=== PATIENT | female | born 1960 | race Caucasian/White ===

== ENCOUNTER → 2024-08-28 | Outpatient (CLI) | payer BC ==
--- NOTE | 2024-08-28 09:27 | BD ---
EXAMINATION TYPE: Axial Bone Density DATE OF EXAM: 08/28/2024 CLINICAL HISTORY: 64 years old Female. ICD-10 CODE: Z78.0 POSTMENOPAUSAL , Additional History: Height: 64.5 Weight: 166.3 FRAX RISK QUESTIONS: Alcohol (3 or more units per day): no Family History (Parent hip fracture): yes Glucocorticoids (More than 3mos): no (Ex: prednisone, prednisolone, methylprednisolone, dexamethasone, and hydrocortisone). History of Fracture in Adulthood: no Secondary Osteoporosis: 1. Type 1 Diabetes: no 2. Hyperthyroidism: no 3. Menopause before 45: yes 4. Malnutrition: no 5. Chronic liver disease: no Rheumatoid Arthritis: no Current Tobacco Use: yes RISK FACTORS HISTORY OF: Surgery to Spine/Hip(right/left)/Wrist (right/left): no When: MEDICATIONS: Thyroid Medications: synthroid How Long: since age 14 EXAM MEASUREMENTS: Bone mineral densitometry was performed using the SCYFIX System. Bone mineral density as measured about the Lumbar spine is: ----- L1-L4(G/cm2): 0.992 T Score Values are as follows: ----- L1: -2.1 ----- L2: -2.4 ----- L3: -1.5 ----- L4: -0.8 ----- L1-L4: -1.6 Z Score Values are as follows: ----- L1: -1.0 ----- L2: -1.3 ----- L3: -0.4 ----- L4: 0.3 ----- L1-L4: -0.5 Bone mineral density : baseline Bone mineral density about the R hip (g/cm2): 0.853 Bone mineral density about the L hip (g/cm2): 0.810 T Score values are as follows: -----R Neck: -2.0 -----L Neck: -1.8 -----R Total: -1.2 -----L Total: -1.6 Z Score values are as follows: -----R Neck: -0.9 -----L Neck: -0.7 -----R Total: -0.4 -----L Total: -0.7 Bone mineral density : baseline FRAX%s: The graph provided illustrates a 19.6% chance for a major osteoporotic fx and a 2.7% chance f or the hips probability for fx in 10 years time. IMPRESSION: Osteopenia (T Score between -2.5 and -1). There is slightly increased risk of fracture and the patient may be considered for treatment. Re-Screen 2-5 years. NOTE: T-SCORE=SD OF THE YOUNG ADULT MEAN. [facility], , 08/28/2024 9:24 AM
--- NOTE | 2024-08-28 12:08 | MM ---
Reason for Exam: Screening (asymptomatic). Last mammogram was performed 16 year(s) and 2 month(s) ago. Patient History: Menarche at age 14. First Full-Term at age 24. Risk Values: Makenna 5 year model risk: 1.4%. NCI Lifetime model risk: 6.0%. Prior Study Comparison: 01/07/2004 Screening Mammogram, [facility]. 05/10/2007 Bilateral Screening Mammogram, [facility]. 07/01/2008 Bilateral Screening Mammogram, [facility]. Tissue Density: The breasts are extremely dense, which lowers the sensitivity of mammography. Findings: There is no suspicious group of microcalcifications or new suspicious mass in either breast. Overall Assessment: Benign, BI-RAD 2 Management: Screening Mammogram of both breasts in 1 year. . Patient should continue monthly self-breast exams. A clinical breast exam by your physician is recommended on an annual basis. This exam should not preclude additional follow-up of suspicious palpable abnormalities. Note on Makenna scores and lifetime risk: 1. A Makenna score greater than 3% is considered moderate risk. If this is the case, consider specialist referral to assess eligibility for a risk reducing agent. 2. If overall lifetime risk for the development of breast cancer is 20% or higher, the patient may qualify for future screening with alternating mammogram and breast MRI. [facility], , 08/28/2024 12:05 PM. Electronically signed and approved by: Abhijit Randhawa M.D. Radiologis
== END | disposition home or self-care (01) ==
LOC: RADBDWWP 08:13
PROVIDERS: ATTEND Family Medicine
DX: Z12.31 Encounter for screening mammogram for malignant neoplasm of breast (principal); R92.343 Mammographic extreme density, bilateral breasts; M85.89 Other specified disorders of bone density and structure, multiple sites; Z78.0 Asymptomatic menopausal state
CPT/HCPCS: 77063; 77067; 77080

== ENCOUNTER 2024-09-30 07:12 | Day surgery (SDC) | payer BC ==
[2024-09-30] MEDS: IV FLUID CONTINUATION 1,000 ML IV ONE ×2 (08:04→09:12)
[2024-09-30] MEDS: LACTATED RINGERS 1,000 ML IV SCH (08:04)
[2024-09-30 08:05] LABS: Glucose,Whole Blood 137 mg/dL (70-110)
[2024-09-30 08:09] VITALS: TEMP 97
[2024-09-30] MEDS ORDERED: PROPOFOL 10 MG/ML 20 ML VIAL IV ONE (09:20)
--- NOTE | 2024-09-30 09:38 | P.PCN ---
Date of Procedure: 09/30/24 Procedure(s) Performed: BRIEF HISTORY: Patient is a 64-year-old pleasant white female scheduled for an elective colonoscopy as a part of screening for colon cancer. PROCEDURE PERFORMED: Colonoscopy with biopsy. PREOPERATIVE DIAGNOSIS: Screening for colon cancer. IV sedation per Anesthesia. PROCEDURE: After informed consent was obtained, the patient, was brought into the endoscopy unit. IV sedation was administered by Anesthesia under continuous monitoring. Digital rectal examination was normal. Initially the Olympus CF-160 flexible video colonoscope was then inserted in the rectum, gradually advanced into the cecum without any difficulty. Careful examination was performed as the scope was gradually being withdrawn. Ileocecal valve and the appendiceal orifice were visualized and appeared normal. Prep was excellent. Mucosa of the cecum, ascending colon, transverse colon, descending colon, sigmoid colon, and rectum appeared normal. Scattered sigmoid diverticulosis. In the proximal rectum there was a 4 mm polyp that was removed by cold biopsy. Retroflexion was performed in the rectum and no lesions were seen. The patient tolerated the procedure well. IMPRESSION: 4 mm polyp in the proximal rectum status post cold biopsy Scattered sigmoid diverticulosis. RECOMMENDATIONS: Findings of this examination were discussed with the patient as well as her family. She was advised to follow the biopsy results. If the biopsy reveals adenoma, she can have repeat colonoscopy in 5 years.
[2024-09-30 09:59] VITALS: BP 148/81; PULSE 66; RESP 14
== END 2024-09-30 10:13 | disposition home or self-care (01) ==
LOC: ORWHC2ENDO 07:12
PROVIDERS: ATTEND Internal Medicine Gastroenterology
DX: Z12.11 Encounter for screening for malignant neoplasm of colon (principal); K62.1 Rectal polyp; K57.30 Diverticulosis of large intestine without perforation or abscess without bleeding
CPT/HCPCS: 88305; 45380; J2704